=== PATIENT | male | born 1960 | race Caucasian/White ===

== ENCOUNTER 2024-12-28 22:48 | Inpatient (IN) | payer OTHER, SELFPAY ==
[2024-12-28 14:30] LABS: % Basophils 0.1 % (0-2); % Immature Granulocytes 1.7 % (0-0.5); % Lymphocytes 4.6 % (20.5-51.1); % Monocytes 7.3 % (1.7-9.3); % Neutrophils 86.3 % (42.2-75.2); Absolute Immature Granulocytes 0.3 10^3/uL (0-0.05); Absolute Lymphocytes 0.9 10^3/uL (1.2-3.4); Absolute Monocytes 1.4 10^3/uL (0.1-0.6); Absolute Neutrophils 16.4 10^3/uL (1.4-6.5); Hematocrit 33.5 % (39.0-52.0); Hemoglobin 11.5 g/dL (13.0-18.0); Mean Corp Hgb Conc. 34.3 g/dL (33.0-37.0); Mean Corpuscular Hgb 30.3 pg (27.0-31.0); Mean Corpuscular Volume 88.4 fL (80.0-94.0); Mean Platelet Volume 11.3 fL (7.4-10.4); Nucleated Red Blood Cells % 0 % (-); Platelet Count 289 10^3/uL (130-400); Red Blood Cell Count 3.79 10^6/uL (4.70-6.10); Red Cell Dist. Width 13.7 % (11.5-14.5)
[2024-12-28 14:42] LABS: Blood Urea Nitrogen 33 mg/dl (9-20); Calcium 9.1 mg/dl (8.4-10.2); Carbon Dioxide 23 mmol/L (22-30); Chloride 100 mmol/L (98-107); Glucose 116 mg/dl (70-99); Potassium 4.4 mmol/L (3.5-5.1); Sodium 134 mmol/L (135-145); eGFR > 60.00
[2024-12-28 19:51] VITALS: BP 134/86
--- NOTE | 2024-12-28 20:17 | ED.GENMED ---
History of Present Illness
General
Chief Complaint: Rectal Bleeding
Source: patient
Exam Limitations: none
Time Seen by Provider: 12/28/24 20:03
Nursing documentation reviewed up to this point in time: agreed with
History of Present Illness
History of Present Illness:
Patient to ED with complaint of black stools. States he was seen by PCP today who confirmed heme pos stool in office. Sent to ED for eval. He was diagnosed with RLE DVT 2 years ago and has been on eliquis since. He was scheduled for LTKR on
12/24. States he stopped eliquis on 12/20, had IVC filter placed 12/22, knee surgery 12/24. SInce surgery he has been taking celebrex for pain. Placed on ASA full strenght after surgery. Denies any abd. pain. No n/v/d. No prior history of
bleeding. Brought to ED by spuse for eval.
Past History
Past History
ED Past Medical History: Hypercholesterolemia
Social History
Tobacco: Non-smoker
Alcohol: None
Drug: None
Personal:
Living: with family
Employment: Employed
Family History
Family History: Other (Noncontributory)
Review of Systems
Review of Systems
Allergies reviewed?: Yes
All Other Systems: ROS reviewed and negative except as documented in HPI and ROS
Constitutional: Reports no symptoms
EENT: Reports no symptoms
Respiratory: Reports no symptoms
Cardiac: Reports no symptoms
ABD/GI: Reports black stools
Musculoskeletal: Reports joint pain (S/P LTKR. Pain and swelling left knee. Dressing dry and intact.)
Skin: Reports no symptoms (S/p LTKR. Bruising and swelling to left thigh,knee, calf)
Neurological: Reports no symptoms
Psychiatric: Reports no symptoms
Phy Exam
General Physical Exam
General Presentation: well appearing and no apparent distress
General age: appears stated age
General Skin: warm and dry
General Habitus: normal
General Mental: alert
General Hydration: appears well hydrated
Gastrointestinal Exam
Gastrointestinal Exam: normal bowel sounds, non tender, soft, no organomegaly, non distended and no cva tenderness
Rectal Exam: normal external exam, normal sphincter tone and soft stool
Stool: black
Guaiac Status: positive
Musculoskeletal Exam
Musculoskeletal Exam: neuro vasc intact and other (Limited ROM to left knee. Swelling and bruising left knee)
Skin Exam
Skin Exam: normal color, warm/dry, no rash and other (bruising left leg - LTKR 4 days ago. Dressing dry and intact. NO erythema)
Psychiatric Exam
Psychiatric Exam: normal mood/affect
Course
Orders/Labs/Results
Orders:
Orders
12/28/24 14:08
BMP [Basic Metabolic Panel] Urgent
Complete Blood Count/With Diff Urgent
12/28/24 20:15
Acetaminophen 1000MG/100Ml [Ofirmev] 1,000 mg in 100 ml IV ONCE
Acetaminophen IV Indication:: No VA & No Enteral Access
Pantoprazole [Protonix IV] 80 mg IV NOW STA
12/28/24 20:16
0.9% Sodium Chloride 1000 ml [Nss] 1,000 ml IV BOLUS
12/28/24 21:12
Type+Screen Urgent
PTT Urgent
Prothrombin Time Urgent
12/28/24 22:00
Flush (0.9% Sodium Chloride) [Flush (Nss)] See Dose Instructions IV PER PROTOCOL
12/28/24 22:16
ABO2 Urgent
BBK Wristband Number:
Associate notified that ABO2 has been ordered: [id number]
Date: 12/28/24
Time: 21:59
Almond Roaster ID: [id number]
12/28/24 22:26
Admit/Transfer Patient As Directed
Co-Sign Provider:
Level of Care: Inpatient admission
Assign to:: Telemetry
Physician / Group: Alfa
Diagnosis: GI Bleed
Reason for Telemetry: Arrhythmia
Date to Stop Telemetry: 12/31/24
Time to Stop Telemetry: 11:00
Reason for Hospitalization: GI Bleed
Expected length of stay greater than two midnights?: Yes
ELOS- Estimated Length of Stay in days: 3
I certify the patient meets the requirements for IP care: Yes
PRN Pain Medication Management As Directed
May give lesser potent ordered pain med per pt: Yes
preference::
Protocol:: Medication orders for pain may be administered in a
manner that supports deferring to patient preference
when the pt is:
- Requesting an ordered lesser potent pain medication.
Least to most potent pain medications are defined
as: acetaminophen < NSAID < tramadol < opioids
(morphine, oxycodone, hydromorphone).
- Requesting a lesser dose of the same medication IF
ORDERED.
- Requesting a less intrusive route of administration
if both routes are prescribed by the provider (PO <
IV).
12/28/24 22:28
Code Status As Directed
Resuscitation Status: Full Code
12/31/24 11:00
DC Protocol for Telemetry ONCE
Abnormal Lab Results
12/28/24 12/28/24
14:08 21:12
WBC 19.0 H 10^3/uL
(4.8-10.8)
RBC 3.79 L 10^6/uL
(4.70-6.10)
Hgb 11.5 L g/dL
(13.0-18.0)
Hct 33.5 L %
(39.0-52.0)
MPV 11.3 H fL
(7.4-10.4)
Abs Immat Gran (auto) 0.3 H 10^3/uL
(0-0.05)
Absolute Neuts (auto) 16.4 H 10^3/uL
(1.4-6.5)
Absolute Lymphs (auto) 0.9 L 10^3/uL
(1.2-3.4)
Absolute Monos (auto) 1.4 H 10^3/uL
(0.1-0.6)
Immature Gran % 1.7 H %
(0-0.5)
Neutrophils % 86.3 H %
(42.2-75.2)
Lymphocytes % 4.6 L %
(20.5-51.1)
APTT 22.6 L Sec
(23.4-35.0)
Sodium 134 L mmol/L
(135-145)
BUN 33 H mg/dl
(9-20)
Glucose 116 H mg/dl
(70-99)
12/28/24 14:08
12/28/24 14:08
Vital Signs
Initial and Last Documented VS:
Initial Vital Signs
Temp Pulse Resp Pulse Ox
98.1 F 87 18 96
12/28/24 14:01 12/28/24 14:01 12/28/24 14:01 12/28/24 14:01
Last Documented Vital Signs
Temp Pulse Resp BP Pulse Ox
98.3 F 54 13 131/84 94
12/28/24 19:51 12/28/24 22:00 12/28/24 22:00 12/28/24 22:00 12/28/24 22:30
*Critical Care Note
Total Time (30-74mins, 75-104mins- exclusive of procedures): Not Applicable
Update Note
Update Note:
Patient to ED for eval of black stools. Symptoms started 2 days ago. Has been taking celebrex and ASA after LTKR 4 days ago. No abd pain. Stool tonight is black, heme pos. Labs reviewed. Hgb 11. VSS. WIll admit to hospitalist. IVF, protonix
infusing.
ED Attending Note
-
Portions of this chart may have been created with voice recognition software.� Occasional wrong word or��sound alike� substitutions may have occurred due to the inherent limitations of voice recognition software.
Discharge Plan
Departure
Patient Disposition: Admit
Date of Disposition: 12/28/24
Time of Disposition: 20:32
Presentation/result/management discussed w/ accepting MD/DO: Hospitalist
Patient with high blood pressure during this ER visit?: No
Condition: Fair
Covid-19: Not Applicable
Discharge Problem:
GI bleed
Interventions
Interventions:
*Risk Screen - Suicide Last Done: 12/28/24 14:04
*General Assessment Last Done: 12/28/24 20:38
*Neglect/Abuse Screening Last Done: 12/28/24 23:11
ED- Fall Risk Assessment Last Done: 12/28/24 22:35
*ED COVID-19 Vaccine History Last Done: 12/28/24 20:38
*Nursing Disposition Last Done: 12/28/24 23:11
RK-Bpicda-Hxwjhywzzs Assessment Last Done: 12/28/24 22:35
ED- Cardiac Assessment Last Done: 12/28/24 22:35
ED- Pulmonary Assessment Last Done: 12/28/24 22:35
Discharge Date and Time
Discharge Date/Time: 12/28/24 23:12
[2024-12-28 20:35] VITALS: BP 133/87
[2024-12-28 20:38] VITALS: BMI 30.8
[2024-12-28] MEDS: NSS 1000 IV ×2 (20:39→23:43)
[2024-12-28] MEDS: OFIRMEV 100 IV (20:40)
[2024-12-28] MEDS: PROTONIX IV 80 MG IV (20:46)
[2024-12-28 21:00] VITALS: BP 127/82
[2024-12-28 21:31] LABS: INR 1.11; PT 14.6 Sec (11.4-14.6)
[2024-12-28 21:32] LABS: APTT 22.6 Sec (23.4-35.0)
--- NOTE | 2024-12-28 21:56 | HPS.HSE ---
Family Physician
-
Family Physician: MADDISON Hoyos
Chief Complaint
-
Black Stools
History of Present Illness
Patient is a 64 y/o male past medical history of RLE DVT and recent left total replacement on December 24 who presents with black stools. Patient previously was maintained on Eliquis for his DVT which was stopped on Dec 20 in prepartion for his
left total knee replacement, and he had an IVC filter placed on December 22. Post-operatively he was started on Celebrex for pain and a full strength aspirin. Patient reports POD #1 his stool seemed a little dark. He then noted his stools were
more black color. He saw his PCP today who tested his stool which was positive for blood. Patient reports prior EGD ~10 years ago which showed gastritis.
Medical History
Past Medical History
Past Medical History: Reports Other
Additional Past Medical History:
RLE DVT
Hyperlipidemia
Gastritis
Past Surgical History: Reports Other
Additional Past Surgical History:
Left Total Knee Replacement
Right Elbow Surgery
Cholecystectomy
Social History
Tobacco: Non-smoker
Alcohol: Occasional
Family History
Family History: Not pertinent
Allergies / Home Medications
Allergies reflects when Allergies were last updated in [employer].
Home Medications with original date entered in [employer]
Allergy/Medication List:
Allergies
Allergy/AdvReac Type Severity Reaction Status Date / Time
No Known Allergies Allergy Verified 05/30/22 09:23
Home Medications
cholecalciferol (vitamin D3) 50 mcg (2,000 unit) capsule 50 mcg PO DAILY Supplement 05/30/22
fluticasone propionate 50 mcg/actuation nasal spray,suspension 1 spray intranasal DAILY PRN allergies 05/30/22
rosuvastatin 10 mg tablet 10 mg PO HS High cholesterol 05/30/22
apixaban 2.5 mg tablet (Eliquis) 2.5 mg PO BID 12/28/24 - Currently on HOLD
aspirin 325mg PO Daily
celecoxib 100mg PO BID
Review of Systems
-
A 12 point ROS was completed and negative except as noted: Yes
Constitutional: Denies Fever or Chills
Respiratory: Denies Cough or Trouble Breathing
Cardiac: Denies Chest Pain or Palpitations
Abdomen/GI: Denies Abdominal Pain, Nausea, Vomiting or Diarrhea
Physical Exam
Vital Signs
Vital Signs
Temp Pulse Resp BP Pulse Ox
98.3 F 60 20 134/86 98
12/28/24 19:51 12/28/24 19:51 12/28/24 19:51 12/28/24 19:51 12/28/24 19:51
Physical Exam
General: Comfortable and Conversant
HEENT: Anicteric and Moist mucous membranes
Respiratory: Clear and Non Labored Respirations
Cardiac: S1/S2 and Regular Rhythm
GI: Soft and Non Tender
Rectal: Deferred by Provider
Musculoskeletal: No Clubbing, No Cyanosis and No Edema
Skin: Warm and Dry
Neuro: Awake, Alert, Oriented and Nonfocal/grossly intact
Psych: Calm
Laboratory Results
-
12/28/24 14:08
12/28/24 14:08
Laboratory Results
PT 14.6 Sec (11.4-14.6) 12/28/24 21:12
INR 1.11 12/28/24 21:12
APTT 22.6 Sec (23.4-35.0) L 12/28/24 21:12
Data Reviewed
-
Lab Data: Labs Reviewed by me
Impression/Plan
-
GI Bleed, likely upper in nature related to NSAID and Aspirin
-Consult GI
-Continue NPO
-Hold Celebrex and Aspirin
-Continue Protonix IV BID
-Recheck Hgb in AM
Recent Left Total Knee Replacement on December 24
-Notified [facility] of patient's admission
-Consult PT/OT
Hx RLE DVT in 2021 s/p IVC filter placement on Dec 22
-Eliquis is currently on hold following recent Left TKR
Hyperlipidemia
-Continue atorvastatin
DVT proph: SCDs
Code Status: Full Code
[2024-12-28 22:00] VITALS: BP 131/84
[2024-12-28 23:50] VITALS: BP 137/86
--- NOTE | 2024-12-29 01:05 | W.PN.UPDATE ---
Update Note
Progress Note Update
The patient was seen and examined. I have discussed the patient with Joann JORDAN, and agree with her history and physical, assessment and plan of care as per her note. See her note for details.
The patient is a 64 yo male PMH significant for provoked RLE DVT with residual 'scarring' on US, recent left total knee replacement 12/24, who presented with dark stools found to be heme positive by his PCP. He recently discontinued Eliquis on 12/20
in preparation for left TKA, and also had an IVC filter placed 12/22. He's been taking Celebrex 100 mg PO daily for post-op pain, and also aspirin for DVT proph, and developed dark black stools. POD 1 patient reported stools seemed a little dark
and worsening. He also notes prior EGD ~10 years ago showed gastritis and he took PPI therapy. At that time GB was evaluated by [facility] (less than 10% function, and US showed GB polyp, and he had a cholecystectomy). No hematemesis, no hematochezia.
Vital Signs
Temp Pulse Resp BP Pulse Ox
98.3 F 60 20 134/86 98
12/28/24 19:51 12/28/24 19:51 12/28/24 19:51 12/28/24 19:51 12/28/24 19:51
Physical Exam
General:NAD, conversant
Respiratory: CTA b/l , no w/r/g
Cardiac: RRR, no m/r/g
GI: Soft and Non Tender, normal bs, no peritoneal signs
Impression/Plan
#Concern for Upper GI Bleed, possibly due to NSAID and Aspirin use
-GI consultation is appreciated
-IVF
-IV PPI
-NPO
-hold aspirin, Celebrex
-repeat hemoglobin monitoring
#Recent Left Total Knee Replacement 12/24/24
-[facility] notified of patient's admission
#RLE DVT in 2021 s/p IVC filter placement on Dec 22
-no DOAC at this time
-Eliquis is currently on hold following recent Left TKR, continue to hold
#HLD
-atorvastatin
DVT proph-PCDs
Full Code
[2024-12-29 03:05] VITALS: BP 132/78
[2024-12-29 06:00] VITALS: BMI 30.4
[2024-12-29 06:37] LABS: Hematocrit 28.7 % (39.0-52.0); Hemoglobin 9.7 g/dL (13.0-18.0); Mean Corp Hgb Conc. 33.8 g/dL (33.0-37.0); Mean Corpuscular Hgb 30.4 pg (27.0-31.0); Mean Platelet Volume 11.4 fL (7.4-10.4); Platelet Count 239 10^3/uL (130-400); Red Blood Cell Count 3.19 10^6/uL (4.70-6.10); White Blood Cell Count 13.4 10^3/uL (4.8-10.8)
--- NOTE | 2024-12-29 06:58 | CON.GI ---
Addendum entered and electronically signed by Leno Mendoza MD 12/29/24 16:37:
Patient seen and examined, agree with nurse practitioner. Patient with recent knee replacement, off of his Eliquis though on aspirin and Celebrex as well as steroids, with dark heme positive stools. His hemoglobin dropped 11.5-9.7 with elevated
BUN, though his last bowel meant was earlier this morning. He denies any nausea, abdominal pain, lightheadedness or dizziness and is overall been doing very well. His endoscopy in the past showed hiatal hernia though otherwise was unremarkable has
been feeling well. His last colonoscopy was in 2020 with small polyp and diverticulosis though otherwise unremarkable. He is currently feeling well, and exam is benign. Most likely etiology is peptic ulcer disease in the setting of aspirin,
NSAIDs and steroids, though no signs of gross bleeding now. At this point we will continue PPI, clear liquid diet for tonight and plan EGD in the morning. Further recommendations pending EGD and morning labs.
Original Note:
Consultation
-
Date/Time Consultation Requested: 12/28/24 2330
Date/Time Consultation Performed: 12/29/24 0700
Requesting Provider: Joann Thayer PA-C
Performing Provider: MADDISON Chang, Gregg Mendoza MD
Reason for Consultation: GI bleed
Medical History
Chief Complaint / HPI
Chief Complaint: black stools
History of Present Illness:
Pt is a 64yo with hx hypercholesterolemia, diverticulosis, colon polyps, prior siobhan, HH, prior gastritis, and hx DVT 2 years ago on Eliquis. He went for elective TKR 12/24 but prior to surgery he had IVC filter placed 12/22 and stopped Eliquis
12/20. Post surgery he was taking Celebrex, ASA, and steroids and now presents with black heme + stools. On admission noted with hbg 11.5 with drop to 9.7 after admission with BUN up to 33. Per plan was for eventual filter removal and return to
Eliquis.
Pt admits to formed dark stools. He denies dysphagia, hematemesis, GERD, nausea, vomiting, abdominal pain, diarrhea, constipation or red blood in stool. No lightheadedness or dizziness. No pre surgery NSAID use.
05/2021 [facility] colonoscopy-diverticulosis, 3 mm polyp hepatic flexure bx TA no high grade dysplasia
03/2016 [facility]oscopy diverticulosis
02/2011 [facility]oscopy 4 mm polyp AC, diverticulosis, nodular prostate bx tubular adenoma
EGD [address] Mendoza [facility], gastritis per pt recall
Past Medical History
Past Medical History: Hypercholesterolemia and Other (DVT on Eliquis dyspepsia, nodular prostate, TAcolon polyps, rhinitis, diverticulosis)
Past Surgical History: Cholecystectomy (2012), Orthopedic (left elbow injury, TKR 12/24/24 ) and Other (DDD)
Social History
Tobacco: Non-Smoker
Alcohol: Occasional
Drug: None
Personal:
Living: With Family
Employment: Employed
Family History
Family History: Other (colon CA- father 50's)
Allergies / Home Medications
Allergy/AdvReac Type Severity Reaction Status Date / Time
No Known Allergies Allergy Verified 05/30/22 09:23
�Medication �Instructions �Recorded
cholecalciferol (vitamin D3) 50 50 mcg PO DAILY Supplement 05/30/22
mcg (2,000 unit) capsule
fluticasone propionate 50 1 spray intranasal DAILY PRN 05/30/22
mcg/actuation nasal allergies
spray,suspension
rosuvastatin 10 mg tablet 10 mg PO HS High cholesterol 05/30/22
apixaban 2.5 mg tablet (Eliquis) 2.5 mg PO BID 12/28/24
Review of Systems
-
History Source: Patient
Constitutional: Reports No Symptoms
EENT: Reports No Symptoms
Respiratory: Reports No Symptoms
Cardiac: Reports No Symptoms
Abdomen/GI: Reports Black Stools
Musculoskeletal: Reports Joint Pain (s/p TKR 12/24 minimal bruising)
Skin: Reports No Symptoms
Neurological: Reports No Symptoms
Endocrine: Reports No Symptoms
Hematologic/Lymphatic: Reports Bleeding
Vital Signs
Temp Pulse Resp BP Pulse Ox
98.1 F 57 16 132/78 96
12/29/24 03:05 12/29/24 03:05 12/29/24 03:05 12/29/24 03:05 12/29/24 03:05
Physical Exam
Exam
General: Well Developed and Well Nourished
HEENT: Normocephalic and Anicteric
Respiratory: Clear
Cardiac: Regular Rhythm
GI: Soft, Non Tender and Non Distended
Rectal: Black
Musculoskeletal: No Clubbing and No Cyanosis
Skin: Warm and Dry
Neuro: Awake, Alert and AO x 3
Psych: Calm
Results
WBC 13.4 10^3/uL (4.8-10.8) H 12/29/24 04:52
Hgb 9.7 g/dL (13.0-18.0) L 12/29/24 04:52
Hct 28.7 % (39.0-52.0) L 12/29/24 04:52
MCV 90.0 fL (80.0-94.0) 12/29/24 04:52
Plt Count 239 10^3/uL (130-400) 12/29/24 04:52
Absolute Neuts (auto) 16.4 10^3/uL (1.4-6.5) H 12/28/24 14:08
PT 14.6 Sec (11.4-14.6) 12/28/24 21:12
INR 1.11 12/28/24 21:12
APTT 22.6 Sec (23.4-35.0) L 12/28/24 21:12
Sodium 134 mmol/L (135-145) L 12/28/24 14:08
Potassium 4.4 mmol/L (3.5-5.1) 12/28/24 14:08
Chloride 100 mmol/L (98-107) 12/28/24 14:08
Carbon Dioxide 23 mmol/L (22-30) 12/28/24 14:08
BUN 33 mg/dl (9-20) H 12/28/24 14:08
Creatinine 1.2 mg/dL (0.7-1.3) 12/28/24 14:08
Calcium 9.1 mg/dl (8.4-10.2) 12/28/24 14:08
Diagnostic Image Results:
none
Prior GI Procedures:
05/2021 [facility] colonoscopy-diverticulosis, 3 mm polyp hepatic flexure bx TA no high grade dysplasia
03/2016 [facility] colonoscopy diverticulosis
02/2011 [facility]oscopy 4 mm polyp AC, diverticulosis, nodular prostate bx tubular adenoma
EGD [address] Mendoza [facility], gastritis per pt recall
Assessment / Plan
-
Pt is a 64yo with hx hypercholesterolemia, diverticulosis, colon polyps, prior siobhan, HH, prior gastritis, and hx DVT 2 years ago on Eliquis. He went for elective TKR 12/24 but prior to surgery he had IVC filter placed 12/22 and stopped Eliquis
12/20. Post surgery he was taking Celebrex, ASA, and steroids and now presents with black heme + stools. On admission noted with hbg 11.5 with drop to 9.7 after admission with BUN up to 33. Per plan was for eventual filter removal and return to
Eliquis. No pre surgery NSAID use.
-black stool
-anemia
-mild elevated BUN
--recent TKR 12/24 Steroid/ NSAID use post-op
-hx DVT off Eliquis since 12/[address]
-Hx hiatal hernia/gastritis
other med problems:
-diverticulosis
-hypercholesterolemia
-prior siobhan
PLAN:
etiology of black stools related to PUD, andrzej lesion with hx HH vs other
plan for EGD 12/30
trend hbg/BUN
ok for clear diet today no reds
cont PPI BID
will need to review with ortho for ongoing NSAID need
Eliquis hold last dose 12/20 will need eventual restart-- per pt plan was for restart 4 weeks after filter removed
pain control per hospitalist
-
-
Thank you for consultation and allowing me to participate in the patient's care. Please call the quality control auditor GI physician during the after hours with any questions or concerns.
[2024-12-29 06:59] LABS: Blood Urea Nitrogen 27 mg/dl (9-20); Calcium 8.3 mg/dl (8.4-10.2); Carbon Dioxide 25 mmol/L (22-30); Chloride 103 mmol/L (98-107); Estimated Creatinine Clearance 72 ml/min; Glucose 84 mg/dl (70-99); Potassium 4.6 mmol/L (3.5-5.1); Sodium 136 mmol/L (135-145); eGFR > 60.00
--- NOTE | 2024-12-29 07:17 | PTCARENOTE ---
23:05 pt rec;vd from ER, IVF NSS infusing at 80ml/hr, vs stable, pt denies abd pain, oriented to unit.
[2024-12-29 07:56] VITALS: BP 127/72
[2024-12-29] MEDS: VITAMIN D3 (cholecalciferol) 50 MCG PO (08:27)
[2024-12-29] MEDS: PROTONIX IV 40 MG IV ×2 (08:27→20:01)
[2024-12-29] MEDS: NSS (PRESERVATIVE FREE) 10 ML IV ×2 (08:27→20:01)
[2024-12-29 11:29] VITALS: BP 132/81
[2024-12-29] MEDS: NSS 1000 IV ×2 (12:08→23:01)
--- NOTE | 2024-12-29 14:31 | W.PN.HOSP.TC ---
Today's Communication/Plan
-
EGD tomorrow
continue IV Protonix
recheck Hgb, BMP in AM
Assessment / Plan
Assessment / Plan
GI Bleed, likely upper in nature related to NSAID and Aspirin
-Consult GI
input appreciated, for planned EGD tomorrow
- NPO changed to clear liquids
-Hold Celebrex and Aspirin
-Continue Protonix IV BID
-HGB 11.5-->9.7
Recent Left Total Knee Replacement on December 24
-Notified [facility] of patient's admission
-Consult PT/OT
Hx RLE DVT in 2021 s/p IVC filter placement on Dec 22
-Eliquis is currently on hold following recent Left TKR
Hyperlipidemia
-Continue atorvastatin
DVT proph: SCDs
Code Status: Full Code
Anticipated Discharge: 24 - 48 hours
Subjective/Interval History
-
Date of Service: December 29, 2024
Awake, alert
Objective Data
-
Labs:
Laboratory Results
12/29/24
04:52
WBC 13.4 H
Hgb 9.7 L
Hct 28.7 L
Plt Count 239
Sodium 136
Potassium 4.6
Chloride 103
Carbon Dioxide 25
BUN 27 H
Creatinine 1.2
Glucose 84
Calcium 8.3 L
Vital Signs:
Vital Signs
Temp Pulse Resp BP Pulse Ox
98.2 F 63 16 132/81 96
12/29/24 11:29 12/29/24 11:29 12/29/24 11:29 12/29/24 11:29 12/29/24 11:29
I&O
12/28/24 12/29/24 12/30/24
06:59 06:59 06:59
Intake Total 680 / 680
Output Total 400 / 400 1350 / 1350
Balance 280 / 280 -1350 / -1350
Review of Systems
-
History Source: Patient and Coordinated Provider
Constitutional: Denies Fever
EENT: Reports No Symptoms Reported
Respiratory: Reports No Symptoms
Cardiac: Reports No Symptoms
Abdomen/GI: Denies Abdominal Pain (denied), Nausea or Vomiting
Musculoskeletal: Reports Joint Pain (post op knee)
Physical Exam
-
General: Well Developed, Well Nourished and No Apparent Distress
HEENT: Normocephalic, Atraumatic and Moist Mucous Membranes
Respiratory: Clear to Auscultation; Negative Wheezes, Rales or Rhonchi
Cardiac: Regular Rhythm and S1/S2
GI: Soft, Nontender, Nondistended and Normal Bowel Sounds
Musculoskeletal: No Clubbing, No Cyanosis, No Edema and Other (left knee with evidence of recent incision)
Skin: Warm and Dry
Neuro: Awake, Alert and Oriented
[2024-12-29 15:39] VITALS: BP 127/72
[2024-12-29 19:40] VITALS: BP 127/77
[2024-12-29] MEDS: CRESTOR 10 MG PO (21:48)
[2024-12-29 22:30] VITALS: BP 128/81
[2024-12-29] MEDS: TYLENOL 650 MG PO (23:01)
[2024-12-30] VITALS (9 sets, daily range): BP systolic 14–137; BP diastolic 60–94; BMI 30.1
[2024-12-30 06:46] LABS: Hematocrit 31.1 % (39.0-52.0); Hemoglobin 10.4 g/dL (13.0-18.0); Mean Corp Hgb Conc. 33.4 g/dL (33.0-37.0); Mean Corpuscular Hgb 30.5 pg (27.0-31.0); Mean Corpuscular Volume 91.2 fL (80.0-94.0); Mean Platelet Volume 11.3 fL (7.4-10.4); Platelet Count 251 10^3/uL (130-400); Red Blood Cell Count 3.41 10^6/uL (4.70-6.10); Red Cell Dist. Width 14.1 % (11.5-14.5)
[2024-12-30 07:15] LABS: ALT (SGPT) 27 U/L (0-50); AST (SGOT) 22 U/L (17-59); Albumin 3.6 g/dl (3.5-5.0); Alkaline Phosphatase 61 U/L (38-126); Blood Urea Nitrogen 22 mg/dl (9-20); Calcium 8.2 mg/dl (8.4-10.2); Carbon Dioxide 25 mmol/L (22-30); Chloride 104 mmol/L (98-107); Direct Bilirubin 0.4 mg/dl (0.0-0.4); Estimated Creatinine Clearance 72 ml/min; Glucose 83 mg/dl (70-99); Iron 42 ug/dl (49-181); Potassium 4.4 mmol/L (3.5-5.1); Sodium 137 mmol/L (135-145); Total Bilirubin 1.2 mg/dl (0.2-1.3); Total Protein 6.1 g/dl (6.3-8.2); eGFR > 60.00
[2024-12-30 07:25] LABS: Percent Saturation 16 % (20-50); Total Iron Binding Capacity 252 ug/dl (261-462)
[2024-12-30] MEDS: PROTONIX IV 40 MG IV (08:06)
[2024-12-30] MEDS: NSS (PRESERVATIVE FREE) 10 ML IV (08:06)
[2024-12-30 08:15] LABS: Folate 13.2 ng/ml (2.76-20); Vitamin B12 358 pg/ml (239-931)
[2024-12-30] MEDS: VITAMIN D3 (cholecalciferol) 50 MCG PO (09:59)
[2024-12-30] MEDS: TYLENOL 650 MG PO (09:59)
--- NOTE | 2024-12-30 12:10 | W.PN.HOSP.TC ---
Today's Communication/Plan
-
dc to home
Assessment / Plan
Assessment / Plan
GI Bleed, likely upper in nature related to NSAID and Aspirin
-Consult GI
input appreciated, EGD: - Mild Schatzki ring.
- Medium-sized hiatal hernia.
- Erythematous mucosa in the antrum. Biopsied.
- A few gastric polyps. Biopsied.
- Duodenal erosions without bleeding.
- NPO diet advanced to regular
-Hold Celebrex and Aspirin
-Continue Protonix changed to oral BID
-HGB 11.5-->9.7-->10.4
Fe sat 16%, Ferritin 212
Recent Left Total Knee Replacement on December 24
-Notified [facility] of patient's admission
-Consult PT/OT
Hx RLE DVT in 2021 s/p IVC filter placement on Dec 22
-Eliquis is currently on hold following recent Left TKR
Hyperlipidemia
-Continue atorvastatin
DVT proph: SCDs
Code Status: Full Code
Will give 1 dose of Ferrlecit
Assuming tolerates lunch, to then be discharged
see dictated note
More than 30 minutes spent in discharge including
Final examination of the patient
Summarizing hospital stay
Instructions for continuing care to all relevant caregivers
Preparation of discharge records, prescriptions, and referral forms
Total time spent (in minutes): 45
Anticipated Discharge: Today
Subjective/Interval History
-
Date of Service: December 30, 2024
Awake, alert, in good spirits
Objective Data
-
Labs:
Laboratory Results
12/30/24
04:35
WBC 11.0 H
Hgb 10.4 L
Hct 31.1 L
Plt Count 251
Sodium 137
Potassium 4.4
Chloride 104
Carbon Dioxide 25
BUN 22 H
Creatinine 1.2
Glucose 83
Calcium 8.2 L
Total Bilirubin 1.2
AST 22
ALT 27
Alkaline Phosphatase 61
Vital Signs:
Vital Signs
Temp Pulse Resp BP Pulse Ox
97.6 F 74 20 137/94 97
12/30/24 10:00 12/30/24 10:00 12/30/24 10:00 12/30/24 10:00 12/30/24 10:00
I&O
12/29/24 12/30/24 12/31/24
06:59 06:59 06:59
Intake Total 680 / 680 2280 / 2280
Output Total 400 / 400 1350 / 1350
Balance 280 / 280 930 / 930
Review of Systems
-
History Source: Patient and Coordinated Provider
Constitutional: Denies Fever
EENT: Reports No Symptoms Reported
Respiratory: Reports No Symptoms
Cardiac: Reports No Symptoms
Abdomen/GI: Denies Abdominal Pain (denied), Nausea or Vomiting
Musculoskeletal: Reports Joint Pain (post op knee)
Physical Exam
-
General: Well Developed, Well Nourished and No Apparent Distress
HEENT: Normocephalic, Atraumatic and Moist Mucous Membranes
Respiratory: Clear to Auscultation; Negative Wheezes, Rales or Rhonchi
Cardiac: Regular Rhythm and S1/S2
GI: Soft, Nontender, Nondistended and Normal Bowel Sounds
Musculoskeletal: No Clubbing, No Cyanosis, No Edema and Other (left knee with evidence of recent incision)
Skin: Warm and Dry
Neuro: Awake, Alert and Oriented
[2024-12-30] MEDS: FERRLECIT 110 MG IV (12:48)
--- NOTE | 2024-12-30 13:41 | W.DS.TRANS ---
DC Summary - [employer]
-
Discharge Instructions:
Discharge Diagnosis/Procedures Acute GI bleed
Diet Regular
Activity As tolerated
Driving Restrictions As prior to admission
Bathing Restrictions None
Instructions:
Stand-Alone Forms:
Changes to Home Medications: Yes
Discharge Medications:
DC Medications w/original date entered in [facility]
cholecalciferol (vitamin D3) 50 mcg (2,000 unit) capsule 50 mcg PO DAILY Supplement 05/30/22
fluticasone propionate 50 mcg/actuation nasal spray,suspension 1 spray intranasal DAILY PRN allergies 05/30/22
rosuvastatin 10 mg tablet 10 mg PO HS High cholesterol 05/30/22
apixaban 2.5 mg tablet (Eliquis) 2.5 mg PO BID Blood Clot Prevention/Tx 12/28/24
aspirin 81 mg tablet,delayed release (Adult Aspirin Regimen) 162 mg (2 x 81 mg) PO DAILY #90 tabs 12/30/24
pantoprazole 40 mg tablet,delayed release (Protonix) 40 mg PO BID #60 tabs 12/30/24
Home Medication Changes
take Protonix bid
Eliquis remains on hold post TKR
Aspirin at 162 mg daily
Pending Results: Yes
Additional Pending Results:
Endoscopic Biopsies
--- NOTE | 2024-12-30 16:01 | CM ---
legal records manager reviewed patient's chart and patient has been cleared for discharge to home with spouse, no needs.
Plan; Home with spouse no needs.
== END 2024-12-30 15:13 | disposition home or self-care (01) | DRG 921 ==
LOC: 2 SOUTH 22:48
PROVIDERS: Nurse Practitioner; Nurse Practitioner Adult Health; Physician Assistant Medical; ADMITTING PHYSICIAN Internal Medicine; ATTENDING PHYSICIAN Internal Medicine; CONSULT PHYSICIAN Internal Medicine Gastroenterology; EMERGENCY PHYSICIAN Emergency Medicine; FAMILY PHYSICIAN Nurse Practitioner Family
PROC: 0DB68ZX Excision of Stomach, Via Natural or Artificial Opening Endoscopic, Diagnostic (ICD-10-PCS; 2024-12-30)
DX: K91.841 Postprocedural hemorrhage of a digestive system organ or structure following other procedure (principal); K31.7 Polyp of stomach and duodenum; K44.9 Diaphragmatic hernia without obstruction or gangrene; K22.2 Esophageal obstruction; K31.89 Other diseases of stomach and duodenum; E78.00 Pure hypercholesterolemia, unspecified; Z79.82 Long term (current) use of aspirin; D64.9 Anemia, unspecified; Z79.01 Long term (current) use of anticoagulants; Z86.0100 Personal history of colon polyps, unspecified; Z86.718 Personal history of other venous thrombosis and embolism
CPT/HCPCS: 88305; 80048; 80053; 82248; 82607; 82728; 82746; 83540; 83550; 85025; 85027; 85610; 85730; 86850; 86900; 86901; 88342; 96361; 96374; 96375; 99285; J2916